=== PATIENT | female | born 1990 | race Caucasian/White ===

== ENCOUNTER → 2016-03-24 | Outpatient (REF) | payer OTHER ==
[~2016-03-24] MED LIST: ACET50TA PO; GUMMCHW PO; IBUP60TA PO; IBUP80TA PO; PERC5TAB6 PO; PRENTAB16 PO
== END ==
LOC: M LAB REF 17:20
PROVIDERS: ATTEND Obstetrics & Gynecology
DX: Z01.411 Encounter for gynecological examination (general) (routine) with abnormal findings (principal)

== ENCOUNTER 2016-03-25 18:48 | Emergency (ER) | payer OTHER ==
--- NOTE | 2016-03-25 20:33 | EDDOCDS ---
Nurse's Notes [facility] Name: Mally Gipson Age: 25 yrs Sex: Female : 1990 Arrival Date: 03/25/2016 Time: 18:48 Bed Triage 1 Private MD: [facility] - Adults Diagnosis: Acute upper respiratory infection, unspecified Presentation: 03/25 19:03 Presenting complaint: Patient states: Productive cough for 2 days. Risk factors: jo3 Stridor is not present. Drooling is not present. Shortness of breath is not present. Cellulitis is not present. Adult Sepsis Screening: The patient does not have new or worsening altered mentation. Patient's respiratory rate is less than 22. Systolic blood pressure is greater than 100. Patient has a qSOFA score of 0- Negative Sepsis Screen. Suicide/Homicide risk assessment- the patient denies having any suicidal and/or homicidal ideations and does not present with any other emotional, behavioral or mental health complaints. Status: Patient is not a technical service rep or dependent. Transition of care: patient was not received from another setting of care. 19:03 Acuity: OLAYINKA Level 4 jo3 19:03 Method Of Arrival: Walkin/Carried/Asstd jo3 Triage Assessment: 19:05 General: Appears in no apparent distress, Behavior is appropriate for age, cooperative. jo3 HIV screening NA for this visit Offered previously. Neurological: Level of Consciousness is awake, alert, Oriented to person, place, time. Respiratory: Airway is patent Respiratory effort is even, unlabored. 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 "depression medication" Unknown daily pt unsure of name of medication or dosage. 2. "anxiety pill" Unknown daily pt unsure of name of medication or dosage. 3. benadryl Unknown topical medication. pt unsure of dosage. - PMHx: Anxiety; Asthma; Depression; - PSHx: Exploratory lap; tubal ligation; - Social history: Smoking status: No barriers to communication noted, The patient speaks fluent Icelandic, Speaks appropriately for age, Smoking status: Patient uses tobacco products, light tobacco smoker. - Family history: SO recently diagnosed with bronchitis . - : The pt / caregiver states he / she is not on anticoagulants. Home medication list is obtained from the patient. - Exposure Risk Screening:: None identified. Screenin:45 Screening information is obtained from the patient. Fall risk: No risks identified. lf1 Assistance ADL's: requires no assistance with activities of daily living. Abuse/DV Screen: The patient / caregiver reports he/she is: not in a situation that causes fear, pain or injury. Nutritional screening: No deficits noted. Advance Directives: Currently, there is no health care proxy. There is no active DNR order. home support is adequate. Assessment: 19:45 Adult Sepsis Screening: The patient does not have new or worsening altered mentation. lf1 Patient's respiratory rate is less than 22. Systolic blood pressure is greater than 100. Patient has a qSOFA score of 0- Negative Sepsis Screen. General: Appears in no apparent distress, comfortable, Behavior is cooperative. Pain: Location: throat Pain currently is 0 out of 10 on a pain scale. Pain: Location: chest pain with cough. Neurological: Level of Consciousness is awake, alert, Oriented to person, place, time. EENT: nasal congestion and discharge. Respiratory: Respiratory effort is even, unlabored, Reports shortness of breath cough that is. GI: Denies nausea, vomiting. Derm: Skin is normal. 20:25 General: Appears in no apparent distress, comfortable, Behavior is cooperative. jf3 Neurological: Level of Consciousness is awake, alert, Oriented to person, place, time. Cardiovascular: Capillary refill < 3 seconds. Respiratory: Airway is patent Respiratory effort is even, unlabored, Respiratory pattern is regular, symmetrical. Derm: Skin is normal. 20:32 EENT: Throat. jf3 Vital Signs: 18:51 BP 127 / 85; Pulse 97; Resp 18 S; Temp 98.7(O); Pulse Ox 98% on R/A; Weight 67.13 kg gr2 (R); Height 5 ft. 3 in. (160.02 cm) (R); Pain 4/10; 18:51 Body Mass Index 26.22 (67.13 kg, 160.02 cm) gr2 Vitals: 18:51 Log In Time: March 25, 2016 at 18:51. gr2 ED Course: 18:51 Patient visited by Ariadna Kearney. gr2 18:51 [facility] is Private Physician. gr2 18:51 Patient moved to Waiting gr2 18:52 Patient visited by Ariadna Kearney. gr2 18:55 Patient moved to Pre RCE gr2 19:04 Triage Initiated jo3 19:05 Patient visited by Jessie Kuhn RN. jo3 19:41 Patient moved to Triage 1 lf1 19:47 Stu Freeman PA is PHCP. mo1 19:47 Lucas Olivas DO is Attending Physician. mo1 20:06 Patient visited by Stu Freeman PA. mo1 20:19 [facility] is Referral Physician. mo1 20:25 Khris Galeana,DAMI is Primary Nurse. jf3 20:25 The patient / caregiver is instructed regarding the plan of care and ED course. jf3 20:25 No IV's were initiated during this patient's visit. No procedures done that require jf3 assistance. 20:26 Patient visited by Khris Galeana RN. jf3 Order Results: There are currently no results for this order. Outcome: 20:19 Discharge ordered by Provider. mo1 20:32 Discharge Assessment: Patient awake, alert and oriented x 3. No cognitive and/or jf3 functional deficits noted. Patient verbalized understanding of disposition instructions. patient administered narcotics - no. The following High Risk Discharge criteria are identified: None. Discharged to home ambulatory. Condition: good. Discharge instructions given to patient, Instructed on discharge instructions, follow up and referral plans. medication usage, Demonstrated understanding of instructions, medications, Pt was receptive of discharge instructions/ teaching. No special radiology studies were completed. Property :Personal belongings accompany Pt. 20:32 Patient left the ED. jf3 Signatures: Jessie Kuhn,RN RN Farrah Sargent RN RN lf1 Ariadna Kearney gr2 Stu Freeman PA PA mo1 Khris Galeana RN RN jf3 MTDD
--- NOTE | 2016-03-25 20:33 | EDDOCDS ---
Physician Documentation [facility] Name: Mally Gipson Age: 25 yrs Sex: Female : 1990 Arrival Date: 03/25/2016 Time: 18:48 Bed Triage 1 Private MD: [facility] - Adults Disposition: 03/25/16 20:19 Discharged to Home/Self Care. Impression: Acute upper respiratory infection, unspecified. - Condition is Stable. - Discharge Instructions: Upper Respiratory Infection, Adult, Viral Infections. - Prescriptions for Fluticasone 50 mcg/actuation Nasal [place], Suspension - inhale 2 spray by INTRANASAL route once daily; 1 bottle. - Medication Reconciliation, Local Pharmacy Hours form. - Follow up: [facility] - Adults; When: Call to arrange an appointment; Reason: Recheck today's complaints, Continuance of care. - Problem is new. - Symptoms are unchanged. Historical: - Allergies: No known drug Allergies; - Home Meds: 1. "depression medication" Unknown daily pt unsure of name of medication or dosage. 2. "anxiety pill" Unknown daily pt unsure of name of medication or dosage. 3. benadryl Unknown topical medication. pt unsure of dosage. - PMHx: Anxiety; Asthma; Depression; - PSHx: Exploratory lap; tubal ligation; - Social history: Smoking status: No barriers to communication noted, The patient speaks fluent Tunisian, Speaks appropriately for age, Smoking status: Patient uses tobacco products, light tobacco smoker. - Family history: SO recently diagnosed with bronchitis . - : The pt / caregiver states he / she is not on anticoagulants. Home medication list is obtained from the patient. - Exposure Risk Screening:: None identified. 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 3 in. (160.02 cm) (R); Pain 4/10; 18:51 Body Mass Index 26.22 (67.13 kg, 160.02 cm) gr2 Signatures: Jessie Kuhn RN RN jo3 Farrah Wells RN RN lf1 Stu Freeman PA PA mo1 Khris Galeana,RN RN jf3 The chart was reviewed and I authenticate all verbal orders and agree with the evaluation and treatment provided.Corrections: (The following items were deleted from the chart) 19:55 19:47 Strep Screen, Nursing ordered. mo1 mo1 MTDD
--- NOTE | 2016-03-27 21:33 | EDDOCDS ---
Physician Documentation [facility] Name: Mally Gipson Age: 25 yrs Sex: Female : 1990 Arrival Date: 03/25/2016 Time: 18:48 Bed Triage 1 Private MD: [facility] - Adults Disposition: 03/25/16 20:19 Discharged to Home/Self Care. Impression: Acute upper respiratory infection, unspecified. - Condition is Stable. - Discharge Instructions: Upper Respiratory Infection, Adult, Viral Infections. - Prescriptions for Fluticasone 50 mcg/actuation Nasal [place], Suspension - inhale 2 spray by INTRANASAL route once daily; 1 bottle. - Medication Reconciliation, Local Pharmacy Hours form. - Follow up: [facility] - Adults; When: Call to arrange an appointment; Reason: Recheck today's complaints, Continuance of care. - Problem is new. - Symptoms are unchanged. Historical: - Allergies: No known drug Allergies; - Home Meds: 1. "depression medication" Unknown daily pt unsure of name of medication or dosage. 2. "anxiety pill" Unknown daily pt unsure of name of medication or dosage. 3. benadryl Unknown topical medication. pt unsure of dosage. - PMHx: Anxiety; Asthma; Depression; - PSHx: Exploratory lap; tubal ligation; - Social history: Smoking status: No barriers to communication noted, The patient speaks fluent [place]araguan, Speaks appropriately for age, Smoking status: Patient uses tobacco products, light tobacco smoker. - Family history: SO recently diagnosed with bronchitis . - : The pt / caregiver states he / she is not on anticoagulants. Home medication list is obtained from the patient. - Exposure Risk Screening:: None identified. 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 3 in. (160.02 cm) (R); Pain 4/10; 18:51 Body Mass Index 26.22 (67.13 kg, 160.02 cm) gr2 MDM: 20:46 [facility] Payment Agreement was scanned into [employer] and attached to record. gjb 20:46 Financial registration complete. [facility] 03/26 12:14 T-Sheet-- Draft Copy was scanned into [employer] and attached to record. Signatures: Eve Munoz, Reg Reg Jessie Dailey,RN RN jo3 Farrah WellsRN RN lf1 Stu Freeman PA PA mo1 Khris Galeana,DAMI RN jf3 Maria E Billings [facility] The chart was reviewed and I authenticate all verbal orders and agree with the evaluation and treatment provided.Corrections: (The following items were deleted from the chart) 03/25 19:55 19:47 Strep Screen, Nursing ordered. mo1 mo1 Attachments: 20:46 [facility] Payment Agreement [facility] 03/26 12:14 T-Sheet-- Draft Copy gb Chart Complete MTDD
--- NOTE | 2016-03-27 21:33 | EDDOCDS ---
Nurse's Notes [facility] Name: Mally Gipson Age: 25 yrs Sex: Female : 1990 Arrival Date: 03/25/2016 Time: 18:48 Bed Triage 1 Private MD: [facility] - Adults Diagnosis: Acute upper respiratory infection, unspecified Presentation: 03/25 19:03 Presenting complaint: Patient states: Productive cough for 2 days. Risk factors: jo3 Stridor is not present. Drooling is not present. Shortness of breath is not present. Cellulitis is not present. Adult Sepsis Screening: The patient does not have new or worsening altered mentation. Patient's respiratory rate is less than 22. Systolic blood pressure is greater than 100. Patient has a qSOFA score of 0- Negative Sepsis Screen. Suicide/Homicide risk assessment- the patient denies having any suicidal and/or homicidal ideations and does not present with any other emotional, behavioral or mental health complaints. Status: Patient is not a service crew leader or dependent. Transition of care: patient was not received from another setting of care. 19:03 Acuity: OLAYINKA Level 4 jo3 19:03 Method Of Arrival: Walkin/Carried/Asstd jo3 Triage Assessment: 19:05 General: Appears in no apparent distress, Behavior is appropriate for age, cooperative. jo3 HIV screening NA for this visit Offered previously. Neurological: Level of Consciousness is awake, alert, Oriented to person, place, time. Respiratory: Airway is patent Respiratory effort is even, unlabored. 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 "depression medication" Unknown daily pt unsure of name of medication or dosage. 2. "anxiety pill" Unknown daily pt unsure of name of medication or dosage. 3. benadryl Unknown topical medication. pt unsure of dosage. - PMHx: Anxiety; Asthma; Depression; - PSHx: Exploratory lap; tubal ligation; - Social history: Smoking status: No barriers to communication noted, The patient speaks fluent Greek, Speaks appropriately for age, Smoking status: Patient uses tobacco products, light tobacco smoker. - Family history: SO recently diagnosed with bronchitis . - : The pt / caregiver states he / she is not on anticoagulants. Home medication list is obtained from the patient. - Exposure Risk Screening:: None identified. Screenin:45 Screening information is obtained from the patient. Fall risk: No risks identified. lf1 Assistance ADL's: requires no assistance with activities of daily living. Abuse/DV Screen: The patient / caregiver reports he/she is: not in a situation that causes fear, pain or injury. Nutritional screening: No deficits noted. Advance Directives: Currently, there is no health care proxy. There is no active DNR order. home support is adequate. Assessment: 19:45 Adult Sepsis Screening: The patient does not have new or worsening altered mentation. lf1 Patient's respiratory rate is less than 22. Systolic blood pressure is greater than 100. Patient has a qSOFA score of 0- Negative Sepsis Screen. General: Appears in no apparent distress, comfortable, Behavior is cooperative. Pain: Location: throat Pain currently is 0 out of 10 on a pain scale. Pain: Location: chest pain with cough. Neurological: Level of Consciousness is awake, alert, Oriented to person, place, time. EENT: nasal congestion and discharge. Respiratory: Respiratory effort is even, unlabored, Reports shortness of breath cough that is. GI: Denies nausea, vomiting. Derm: Skin is normal. 20:25 General: Appears in no apparent distress, comfortable, Behavior is cooperative. jf3 Neurological: Level of Consciousness is awake, alert, Oriented to person, place, time. Cardiovascular: Capillary refill < 3 seconds. Respiratory: Airway is patent Respiratory effort is even, unlabored, Respiratory pattern is regular, symmetrical. Derm: Skin is normal. 20:32 EENT: Throat. jf3 Vital Signs: 18:51 BP 127 / 85; Pulse 97; Resp 18 S; Temp 98.7(O); Pulse Ox 98% on R/A; Weight 67.13 kg gr2 (R); Height 5 ft. 3 in. (160.02 cm) (R); Pain 4/10; 18:51 Body Mass Index 26.22 (67.13 kg, 160.02 cm) gr2 Vitals: 18:51 Log In Time: March 25, 2016 at 18:51. gr2 ED Course: 18:51 Patient visited by Ariadna Kearney. gr2 18:51 [facility] - [facility] is Private Physician. gr2 18:51 Patient moved to Waiting gr2 18:52 Patient visited by Ariadna Kearney. gr2 18:55 Patient moved to Pre RCE gr2 19:04 Triage Initiated jo3 19:05 Patient visited by Jessie Kuhn RN. jo3 19:41 Patient moved to Triage 1 lf1 19:47 Stu Freeman PA is PHCP. mo1 19:47 Lucas Olivas DO is Attending Physician. mo1 20:06 Patient visited by Stu Freeman PA. mo1 20:19 [facility] is Referral Physician. mo1 20:25 Khris Galeana,DAMI is Primary Nurse. jf3 20:25 The patient / caregiver is instructed regarding the plan of care and ED course. jf3 20:25 No IV's were initiated during this patient's visit. No procedures done that require jf3 assistance. 20:26 Patient visited by Khris Galeana RN. jf3 20:46 [facility] Payment Agreement was scanned into [employer] and attached to record. gjb 03/26 12:14 T-Sheet-- Draft Copy was scanned into [employer] and attached to record. gb Order Results: There are currently no results for this order. Outcome: 03/25 20:19 Discharge ordered by Provider. mo1 20:32 Discharge Assessment: Patient awake, alert and oriented x 3. No cognitive and/or jf3 functional deficits noted. Patient verbalized understanding of disposition instructions. patient administered narcotics - no. The following High Risk Discharge criteria are identified: None. Discharged to home ambulatory. Condition: good. Discharge instructions given to patient, Instructed on discharge instructions, follow up and referral plans. medication usage, Demonstrated understanding of instructions, medications, Pt was receptive of discharge instructions/ teaching. No special radiology studies were completed. Property :Personal belongings accompany Pt. 20:32 Patient left the ED. jf3 Signatures: Eve Munoz, Gagan Reg Jessie Dailey,RN RN Farrah Sargent RN RN lf1 Ariadna Kearney gr2 Stu Freeman PA PA mo1 Khris Galeana,DAMI RN shravan3 Maria E Billings [facility] Chart Complete MTDD
--- NOTE | 2016-03-27 21:33 | EDDOCDS ---
Physician Documentation [facility] Name: Mally Gipson Age: 25 yrs Sex: Female : 1990 Arrival Date: 03/25/2016 Time: 18:48 Bed Triage 1 Private MD: [facility] - Adults Disposition: 03/25/16 20:19 Discharged to Home/Self Care. Impression: Acute upper respiratory infection, unspecified. - Condition is Stable. - Discharge Instructions: Upper Respiratory Infection, Adult, Viral Infections. - Prescriptions for Fluticasone 50 mcg/actuation Nasal [place], Suspension - inhale 2 spray by INTRANASAL route once daily; 1 bottle. - Medication Reconciliation, Local Pharmacy Hours form. - Follow up: [facility] - Adults; When: Call to arrange an appointment; Reason: Recheck today's complaints, Continuance of care. - Problem is new. - Symptoms are unchanged. Historical: - Allergies: No known drug Allergies; - Home Meds: 1. "depression medication" Unknown daily pt unsure of name of medication or dosage. 2. "anxiety pill" Unknown daily pt unsure of name of medication or dosage. 3. benadryl Unknown topical medication. pt unsure of dosage. - PMHx: Anxiety; Asthma; Depression; - PSHx: Exploratory lap; tubal ligation; - Social history: Smoking status: No barriers to communication noted, The patient speaks fluent Citizen Of [place], Speaks appropriately for age, Smoking status: Patient uses tobacco products, light tobacco smoker. - Family history: SO recently diagnosed with bronchitis . - : The pt / caregiver states he / she is not on anticoagulants. Home medication list is obtained from the patient. - Exposure Risk Screening:: None identified. 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 3 in. (160.02 cm) (R); Pain 4/10; 18:51 Body Mass Index 26.22 (67.13 kg, 160.02 cm) gr2 MDM: 20:46 [facility] Payment Agreement was scanned into [employer] and attached to record. gjb 20:46 Financial registration complete. [facility] 03/26 12:14 T-Sheet-- Draft Copy was scanned into [employer] and attached to record. Signatures: Eve Munoz, Reg Reg Jessie Dailey,RN RN jo3 Farrah WellsRN RN lf1 Stu Freeman PA PA mo1 Khris Galeana,DAMI RN jf3 Maria E Billings [facility] The chart was reviewed and I authenticate all verbal orders and agree with the evaluation and treatment provided.Corrections: (The following items were deleted from the chart) 03/25 19:55 19:47 Strep Screen, Nursing ordered. mo1 mo1 Attachments: 20:46 [facility] Payment Agreement [facility] 03/26 12:14 T-Sheet-- Draft Copy gb Chart Complete MTDD
== END 2016-03-25 20:32 | disposition home or self-care (01) ==
LOC: M ED 18:48
DX: J06.9 Acute upper respiratory infection, unspecified (principal); F41.9 Anxiety disorder, unspecified; J45.909 Unspecified asthma, uncomplicated; F32.9 Major depressive disorder, single episode, unspecified; F17.210 Nicotine dependence, cigarettes, uncomplicated; Z79.899 Other long term (current) drug therapy

== ENCOUNTER 2016-04-07 20:56 | Emergency (ER) | payer OTHER ==
--- NOTE | 2016-04-07 22:17 | EDDOCDS ---
Physician Documentation [facility] Name: Mally Gipson Age: 25 yrs Sex: Female : 1990 Arrival Date: 04/07/2016 Time: 20:56 Bed TR7 Private MD: [facility] - Adults Disposition: 04/07/16 22:08 Discharged to Home/Self Care. Impression: Rash and other nonspecific skin eruption. - Condition is Stable. - Discharge Instructions: Rash, [id number]. - Medication Reconciliation, Local Pharmacy Hours form. - Follow up: [facility] - Adults; When: Call to arrange an appointment; Reason: Further diagnostic work-up, Recheck today's complaints, Continuance of care. - Problem is new. - Symptoms are unchanged. Historical: - Allergies: no known allergies; - Home Meds: 1. "anxiety pill" Unknown daily pt unsure of name of medication or dosage. 2. "depression medication" Unknown daily pt unsure of name of medication or dosage. 3. benadryl Unknown topical medication. pt unsure of dosage. (Last dose: 04/07/2016 20:30) - PMHx: Anxiety; Asthma; Depression; - PSHx: Exploratory lap; - Social history: Smoking status: Patient uses tobacco products, heavy tobacco smoker. No barriers to communication noted, The patient speaks fluent [place] Citizen. - Family history: Not pertinent. - : The pt / caregiver states he / she is not on anticoagulants. Home medication list is obtained from. - Exposure Risk Screening:: None identified. 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 3 in. (160.02 cm) (R); Pain 2/10; 20:57 Body Mass Index 25.33 (64.86 kg, 160.02 cm) gr2 Signatures: Mikal Reid RN RN cz [place], Brandon, PA PA btw Stu Quintanilla RN RN mb9 MTDD
--- NOTE | 2016-04-07 22:17 | EDDOCDS ---
Nurse's Notes [facility] Name: Mally Gipson Age: 25 yrs Sex: Female : 1990 Arrival Date: 04/07/2016 Time: 20:56 Bed TR7 Private MD: [facility] - Adults Diagnosis: Rash and other nonspecific skin eruption Presentation: 04/07 21:07 Presenting complaint: Patient states: "I'm breaking out in my stomach from around and mb9 up and don't ask me what its called because I don't know. Its a high blood pressure med they gave me for sleep". Adult Sepsis Screening: The patient does not have new or worsening altered mentation. Patient's respiratory rate is less than 22. Systolic blood pressure is greater than 100. Patient has a qSOFA score of 0- Negative Sepsis Screen. Suicide/Homicide risk assessment- the patient denies having any suicidal and/or homicidal ideations and does not present with any other emotional, behavioral or mental health complaints. Status: Patient is not a off premise service representative or dependent. Transition of care: patient was not received from another setting of care. 21:07 Acuity: OLAYINKA Level 4 mb9 21:07 Method Of Arrival: Walkin/Carried/Asstd mb9 Triage Assessment: 21:09 General: Appears in no apparent distress. Pain: Denies pain. HIV screening NA for this mb9 visit Offered previously. Respiratory: Airway is patent Respiratory effort is even, unlabored. Derm: Reports "I think I have hives on my stomach". 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 "anxiety pill" Unknown daily pt unsure of name of medication or dosage. 2. "depression medication" Unknown daily pt unsure of name of medication or dosage. 3. benadryl Unknown topical medication. pt unsure of dosage. (Last dose: 04/07/2016 20:30) - PMHx: Anxiety; Asthma; Depression; - PSHx: Exploratory lap; - Social history: Smoking status: Patient uses tobacco products, heavy tobacco smoker. No barriers to communication noted, The patient speaks fluent [place]. - Family history: Not pertinent. - : The pt / caregiver states he / she is not on anticoagulants. Home medication list is obtained from. - Exposure Risk Screening:: None identified. Screenin:14 Screening information is obtained from the patient. Fall risk: No risks identified. cz Assistance ADL's: requires no assistance with activities of daily living. Abuse/DV Screen: The patient / caregiver reports he/she is: not in a situation that causes fear, pain or injury. Nutritional screening: No deficits noted. Advance Directives: Currently, there is no health care proxy. There is no active DNR order. There is no living will. There is no Power of Television Anchor. Advance directive information has not previously been placed in an [facility] medical record. Further advance directive information is declined. home support is adequate. Assessment: 22:14 Reassessment: Patient appears in no apparent distress at this time. cz Vital Signs: 20:57 BP 129 / 70; Pulse 95; Resp 18 S; Temp 98.7(O); Pulse Ox 97% on R/A; Weight 64.86 kg gr2 (R); Height 5 ft. 3 in. (160.02 cm) (R); Pain 2/10; 20:57 Body Mass Index 25.33 (64.86 kg, 160.02 cm) gr2 Vitals: 20:57 Log In Time: April 07, 2016 at 20:57. gr2 ED Course: 20:57 Patient visited by Ariadna Kearney. gr2 20:57 [facility] is Private Physician. gr2 20:57 Patient moved to Waiting gr2 20:58 Patient visited by Ariadna Kearney. gr2 20:58 Patient moved to Pre RCE gr2 21:08 Triage Initiated mb9 21:10 Patient moved to MTA Wait mb9 21:53 Georgie Richter,RN is Primary Nurse. cz 21:53 Patient moved to Triage 2 cz 21:54 Jewel Finch PA is PHCP. btw 21:54 Bradford Urbina DO is Attending Physician. btw 21:54 Patient visited by Jewel Finch PA. btw 22:07 [facility] is Referral Physician. btw 22:13 Patient moved to TR ar3 22:14 The patient / caregiver is instructed regarding the plan of care and ED course. cz 22:14 No IV's were initiated during this patient's visit. No procedures done that require cz assistance. Order Results: There are currently no results for this order. Outcome: 22:08 Discharge ordered by Provider. btw 22:14 Discharge Assessment: Patient awake, alert and oriented x 3. No cognitive and/or cz functional deficits noted. Patient verbalized understanding of disposition instructions. patient administered narcotics - no. The following High Risk Discharge criteria are identified: None. Discharged to home ambulatory. Condition: stable. Discharge instructions given to patient, Instructed on discharge instructions, follow up and referral plans. Demonstrated understanding of instructions, Pt was receptive of discharge instructions/ teaching. No special radiology studies were completed. Property :Personal belongings accompany Pt. 22:16 Patient left the ED. cz Signatures: Mikal Reid, RN RN Angie Finch, KWAN BLANKET BINDER ar3 Jewel Finch PA PA btw Ariadna Kearney gr2 Stu Quintanilla,RN RN mb9 MTDDelia
--- NOTE | 2016-04-09 23:17 | EDDOCDS ---
Physician Documentation [facility] Name: Mally Gipson Age: 25 yrs Sex: Female : 1990 Arrival Date: 04/07/2016 Time: 20:56 Bed TR7 Private MD: [facility] - Adults Disposition: 04/07/16 22:08 Discharged to Home/Self Care. Impression: Rash and other nonspecific skin eruption. - Condition is Stable. - Discharge Instructions: Rash, [id number]. - Medication Reconciliation, Local Pharmacy Hours form. - Follow up: [facility] - Adults; When: Call to arrange an appointment; Reason: Further diagnostic work-up, Recheck today's complaints, Continuance of care. - Problem is new. - Symptoms are unchanged. Historical: - Allergies: no known allergies; - Home Meds: 1. "anxiety pill" Unknown daily pt unsure of name of medication or dosage. 2. "depression medication" Unknown daily pt unsure of name of medication or dosage. 3. benadryl Unknown topical medication. pt unsure of dosage. (Last dose: 04/07/2016 20:30) - PMHx: Anxiety; Asthma; Depression; - PSHx: Exploratory lap; - Social history: Smoking status: Patient uses tobacco products, heavy tobacco smoker. No barriers to communication noted, The patient speaks fluent [place]. - Family history: Not pertinent. - : The pt / caregiver states he / she is not on anticoagulants. Home medication list is obtained from. - Exposure Risk Screening:: None identified. 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 3 in. (160.02 cm) (R); Pain 2/10; 20:57 Body Mass Index 25.33 (64.86 kg, 160.02 cm) gr2 MDM: 22:22 Financial registration complete. [facility] 22:23 [facility] Payment Agreement was scanned into [employer] and attached to record. ks04/08 12:28 T-Sheet-- Draft Copy was scanned into [employer] and attached to record. gb Signatures: Mikal Reid RN RN cz Eve Munoz, Reg Reg gb Jewel Finch PA PA btw Stu Quintanilla RN RN mb9 Keren Haywood, Reg Reg ks16 The chart was reviewed and I authenticate all verbal orders and agree with the evaluation and treatment provided.Attachments: 04/07 22:23 [facility] [place] Agreement [email or web address] 04/08 12:28 T-Sheet-- Draft Copy gb Chart Complete MTDD
--- NOTE | 2016-04-09 23:17 | EDDOCDS ---
Nurse's Notes [facility] Name: Mally Gipson Age: 25 yrs Sex: Female : 1990 Arrival Date: 04/07/2016 Time: 20:56 Bed TR7 Private MD: [facility] - Adults Diagnosis: Rash and other nonspecific skin eruption Presentation: 04/07 21:07 Presenting complaint: Patient states: "I'm breaking out in my stomach from around and mb9 up and don't ask me what its called because I don't know. Its a high blood pressure med they gave me for sleep". Adult Sepsis Screening: The patient does not have new or worsening altered mentation. Patient's respiratory rate is less than 22. Systolic blood pressure is greater than 100. Patient has a qSOFA score of 0- Negative Sepsis Screen. Suicide/Homicide risk assessment- the patient denies having any suicidal and/or homicidal ideations and does not present with any other emotional, behavioral or mental health complaints. Status: Patient is not a reactor service operator or dependent. Transition of care: patient was not received from another setting of care. 21:07 Acuity: OLAYINKA Level 4 mb9 21:07 Method Of Arrival: Walkin/Carried/Asstd mb9 Triage Assessment: 21:09 General: Appears in no apparent distress. Pain: Denies pain. HIV screening NA for this mb9 visit Offered previously. Respiratory: Airway is patent Respiratory effort is even, unlabored. Derm: Reports "I think I have hives on my stomach". 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 "anxiety pill" Unknown daily pt unsure of name of medication or dosage. 2. "depression medication" Unknown daily pt unsure of name of medication or dosage. 3. benadryl Unknown topical medication. pt unsure of dosage. (Last dose: 04/07/2016 20:30) - PMHx: Anxiety; Asthma; Depression; - PSHx: Exploratory lap; - Social history: Smoking status: Patient uses tobacco products, heavy tobacco smoker. No barriers to communication noted, The patient speaks fluent Kinyarwanda. - Family history: Not pertinent. - : The pt / caregiver states he / she is not on anticoagulants. Home medication list is obtained from. - Exposure Risk Screening:: None identified. Screenin:14 Screening information is obtained from the patient. Fall risk: No risks identified. cz Assistance ADL's: requires no assistance with activities of daily living. Abuse/DV Screen: The patient / caregiver reports he/she is: not in a situation that causes fear, pain or injury. Nutritional screening: No deficits noted. Advance Directives: Currently, there is no health care proxy. There is no active DNR order. There is no living will. There is no Power of Senior Project Controls Specialist. Advance directive information has not previously been placed in an [facility] medical record. Further advance directive information is declined. home support is adequate. Assessment: 22:14 Reassessment: Patient appears in no apparent distress at this time. cz Vital Signs: 20:57 BP 129 / 70; Pulse 95; Resp 18 S; Temp 98.7(O); Pulse Ox 97% on R/A; Weight 64.86 kg gr2 (R); Height 5 ft. 3 in. (160.02 cm) (R); Pain 2/10; 20:57 Body Mass Index 25.33 (64.86 kg, 160.02 cm) gr2 Vitals: 20:57 Log In Time: April 07, 2016 at 20:57. gr2 ED Course: 20:57 Patient visited by Ariadna Kearney. gr2 20:57 [facility] is Private Physician. gr2 20:57 Patient moved to Waiting gr2 20:58 Patient visited by Ariadna Kearney. gr2 20:58 Patient moved to Pre RCE gr2 21:08 Triage Initiated mb9 21:10 Patient moved to MTA Wait mb9 21:53 Georgie Richter,RN is Primary Nurse. cz 21:53 Patient moved to Triage 2 cz 21:54 Jewel Finch PA is PHCP. btw 21:54 Bradford Urbina DO is Attending Physician. btw 21:54 Patient visited by Jewel Finch PA. btw 22:07 [facility] is Referral Physician. btw 22:13 Patient moved to TR ar3 22:14 The patient / caregiver is instructed regarding the plan of care and ED course. cz 22:14 No IV's were initiated during this patient's visit. No procedures done that require cz assistance. 22:23 [facility] Payment Agreement was scanned into [employer] and attached to record. [email or web address] 04/08 12:28 T-Sheet-- Draft Copy was scanned into [employer] and attached to record. gb Order Results: There are currently no results for this order. Outcome: 04/07 22:08 Discharge ordered by Provider. btw 22:14 Discharge Assessment: Patient awake, alert and oriented x 3. No cognitive and/or cz functional deficits noted. Patient verbalized understanding of disposition instructions. patient administered narcotics - no. The following High Risk Discharge criteria are identified: None. Discharged to home ambulatory. Condition: stable. Discharge instructions given to patient, Instructed on discharge instructions, follow up and referral plans. Demonstrated understanding of instructions, Pt was receptive of discharge instructions/ teaching. No special radiology studies were completed. Property :Personal belongings accompany Pt. 22:16 Patient left the ED. cz Signatures: Mikal Reid, RN RN cz Eve Munoz, Reg Reg gb Angie Maza, FRUIT PACKER FRUIT PACKER ar3 Jewel Finch PA PA btw Ariadna Kearney gr2 Stu Quintanilla RN RN mb9 Keren Haywood, Reg Reg ks16 Chart Complete [facility]
--- NOTE | 2016-04-09 23:17 | EDDOCDS ---
Physician Documentation [facility] Name: Mally Gipson Age: 25 yrs Sex: Female : 1990 Arrival Date: 04/07/2016 Time: 20:56 Bed TR7 Private MD: [facility] - Adults Disposition: 04/07/16 22:08 Discharged to Home/Self Care. Impression: Rash and other nonspecific skin eruption. - Condition is Stable. - Discharge Instructions: Rash, Ndpn-ic-Bstz. - Medication Reconciliation, Local Pharmacy Hours form. - Follow up: [facility] - Adults; When: Call to arrange an appointment; Reason: Further diagnostic work-up, Recheck today's complaints, Continuance of care. - Problem is new. - Symptoms are unchanged. Historical: - Allergies: no known allergies; - Home Meds: 1. "anxiety pill" Unknown daily pt unsure of name of medication or dosage. 2. "depression medication" Unknown daily pt unsure of name of medication or dosage. 3. benadryl Unknown topical medication. pt unsure of dosage. (Last dose: 04/07/2016 20:30) - PMHx: Anxiety; Asthma; Depression; - PSHx: Exploratory lap; - Social history: Smoking status: Patient uses tobacco products, heavy tobacco smoker. No barriers to communication noted, The patient speaks fluent South Korean. - Family history: Not pertinent. - : The pt / caregiver states he / she is not on anticoagulants. Home medication list is obtained from. - Exposure Risk Screening:: None identified. 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 3 in. (160.02 cm) (R); Pain 2/10; 20:57 Body Mass Index 25.33 (64.86 kg, 160.02 cm) gr2 MDM: 22:22 Financial registration complete. [facility] 22:23 [facility] Payment Agreement was scanned into [employer] and attached to record. ks04/08 12:28 T-Sheet-- Draft Copy was scanned into [employer] and attached to record. gb Signatures: Mikal Reid RN RN cz Eve Munoz, Reg Reg gb Jewel Finch PA PA btw Stu Quintanilla RN RN mb9 Keren Haywood, Reg Reg ks16 The chart was reviewed and I authenticate all verbal orders and agree with the evaluation and treatment provided.Attachments: 04/07 22:23 [facility] Payment Agreement [email or web address] 04/08 12:28 T-Sheet-- Draft Copy gb Chart Complete MTDD
== END 2016-04-07 22:16 | disposition home or self-care (01) ==
LOC: M ED 20:56
DX: R21 Rash and other nonspecific skin eruption (principal); J45.909 Unspecified asthma, uncomplicated; F32.9 Major depressive disorder, single episode, unspecified; F41.9 Anxiety disorder, unspecified; F17.210 Nicotine dependence, cigarettes, uncomplicated; Z79.899 Other long term (current) drug therapy

== ENCOUNTER 2016-04-19 14:26 | Emergency (ER) | payer OTHER ==
[2016-04-19] MEDS ORDERED: ONDANSETRON 4 MG ORAL DISINTEGRATING TAB (S0181) As Ordered ONE (14:48)
--- NOTE | 2016-04-19 14:51 | EDDOCDS ---
Nurse's Notes [facility] Name: Mally Gipson Age: 25 yrs Sex: Female : 1990 Arrival Date: 04/19/2016 Time: 14:26 Bed Triage 3 Private MD: [facility] - Adults Diagnosis: Nausea and vomiting Presentation: 04/19 14:29 Presenting complaint: Patient states: N/V began at 0600 this am. Adult Sepsis mlb1 Screening: The patient does not have new or worsening altered mentation. Patient's respiratory rate is less than 22. Systolic blood pressure is greater than 100. Patient has a qSOFA score of 0- Negative Sepsis Screen. Suicide/Homicide risk assessment- the patient denies having any suicidal and/or homicidal ideations and does not present with any other emotional, behavioral or mental health complaints. Status: Patient is not a director of special services or dependent. Transition of care: patient was not received from another setting of care. 14:29 Acuity: OLAYINKA Level 4 mlb1 14:29 Method Of Arrival: Walkin/Carried/Asstd mlb1 Triage Assessment: 14:30 General: Appears in no apparent distress, Behavior is appropriate for age, cooperative. mlb1 Pain: Location: abdomen Pain currently is 5 out of 10 on a pain scale. Quality of pain is described as crampy. HIV screening NA for this visit Offered previously. GI: Reports nausea, vomiting. 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 none - PMHx: Anxiety; Asthma; Depression; - PSHx: Exploratory lap; - Social history: Smoking status: Patient uses tobacco products, light tobacco smoker. No barriers to communication noted, The patient speaks fluent Pashto, Speaks appropriately for age. - Family history: Not pertinent. - : The pt / caregiver states he / she is not on anticoagulants. Home medication list is obtained from the patient. - Exposure Risk Screening:: None identified. Screenin:50 Screening information is obtained from the patient. Fall risk: No risks identified. mlb1 Assistance ADL's: requires no assistance with activities of daily living. Abuse/DV Screen: The patient / caregiver reports he/she is: not in a situation that causes fear, pain or injury. Nutritional screening: No deficits noted. Advance Directives: Currently, there is no health care proxy. home support is adequate. Assessment: 14:49 General: Appears in no apparent distress, Behavior is appropriate for age, cooperative. mlb1 Pain: Location: abdomen Pain currently is 5 out of 10 on a pain scale. GI: Abdomen is non- distended Bowel sounds present X 4 quads. Abd is soft and non tender X 4 quads. GI: Reports nausea, vomiting. Derm: No deficits noted. Vital Signs: 14:27 BP 126 / 84; Pulse 126; Resp 18; Temp 98.0(O); Pulse Ox 100% ; Weight 63.5 kg (R); lr2 Height 5 ft. 3 in. (160.02 cm) (R); Pain 7/10; 14:27 Body Mass Index 24.80 (63.50 kg, 160.02 cm) lr2 Vitals: 14:27 Log In Time: April 19, 2016 at 14:26. lr2 ED Course: 14:27 Patient visited by Ritu Mcfarland. lr2 14:27 Patient moved to Waiting lr2 14:28 [facility] is Private Physician. lr2 14:29 Patient visited by Stu Butler RN. mlb1 14:29 Patient moved to Pre RCE lr2 14:29 Patient moved to Triage 3 ms18 14:30 Triage Initiated mlb1 14:31 Bull Burt PA-C is [facility]. cc10 14:31 Jackson Zavala MD is Attending Physician. cc10 14:31 Patient visited by Stu Butler RN. mlb1 14:36 Patient visited by Bull Burt PA-C. cc10 14:36 Patient visited by Bull Burt PA-C. cc10 14:43 [facility] is Referral Physician. cc10 14:50 No IV's were initiated during this patient's visit. No procedures done that require mlb1 assistance. 14:51 The patient / caregiver is instructed regarding the plan of care and ED course. mlb1 Order Results: There are currently no results for this order. Outcome: 14:43 Discharge ordered by Provider. cc10 14:50 Discharge Assessment: Patient awake, alert and oriented x 3. No cognitive and/or mlb1 functional deficits noted. Patient verbalized understanding of disposition instructions. patient administered narcotics - no. The following High Risk Discharge criteria are identified: None. Discharged to home ambulatory. Condition: good. Discharge instructions given to patient, Instructed on discharge instructions, follow up and referral plans. medication usage, Demonstrated understanding of instructions, medications, Pt was receptive of discharge instructions/ teaching. No special radiology studies were completed. Property sent home with patient. 14:51 Patient left the ED. mlb1 Signatures: Stu Butler RN RN mlb1 Bull Burt PA-C PA-C cc10 Sherine Berger RN RN ms18 Ritu Mcfarland lr2 MTDD
--- NOTE | 2016-04-19 14:51 | EDDOCDS ---
Physician Documentation [facility] Name: Mally Gipson Age: 25 yrs Sex: Female : 1990 Arrival Date: 04/19/2016 Time: 14:26 Bed Triage 3 Private MD: [facility] - Adults Disposition: 04/19/16 14:43 Discharged to Home/Self Care. Impression: Nausea and vomiting. - Condition is Stable. - Discharge Instructions: Viral Gastroenteritis. - Prescriptions for ZOFRAN ODT 4 mg - dissolve 1 tablet by ORAL route 4 times per day As needed do not chew, do not swallow whole; 10 tablet. - Medication Reconciliation form. - Follow up: [facility] - Adults; When: Call to arrange an appointment; Reason: Wound/Symptom Recheck, Recheck today's complaints, Worsening of conditions, Continuance of care. - Problem is new. - Symptoms are unchanged. Historical: - Allergies: no known allergies; - Home Meds: 1. none - PMHx: Anxiety; Asthma; Depression; - PSHx: Exploratory lap; - Social history: Smoking status: Patient uses tobacco products, light tobacco smoker. No barriers to communication noted, The patient speaks fluent Kiswahili, Speaks appropriately for age. - Family history: Not pertinent. - : The pt / caregiver states he / she is not on anticoagulants. Home medication list is obtained from the patient. - Exposure Risk Screening:: None identified. DIRECTOR OF SLEEP: 04/19 14:31 LMP 04/17/2016 mlb1 Vital Signs: 14:27 BP 126 / 84; Pulse 126; Resp 18; Temp 98.0(O); Pulse Ox 100% ; Weight 63.5 kg / 139.99 lr2 lbs (R); Height 5 ft. 3 in. (160.02 cm) (R); Pain 7/10; 14:27 Body Mass Index 24.80 (63.50 kg, 160.02 cm) lr2 MDM: 14:42 Ondansetron ODT Oral Disintegrating Tablet 4 mg PO once ordered. cc10 Signatures: Stu Butler RN RN mlb1 Bull Burt PA-C PAZamzam cc10 MTDD
--- NOTE | 2016-04-21 15:52 | EDDOCDS ---
Physician Documentation [facility] Name: Mally Gipson Age: 25 yrs Sex: Female : 1990 Arrival Date: 04/19/2016 Time: 14:26 Bed Triage 3 Private MD: [facility] - Adults Disposition: 04/19/16 14:43 Discharged to Home/Self Care. Impression: Nausea and vomiting. - Condition is Stable. - Discharge Instructions: Viral Gastroenteritis. - Prescriptions for ZOFRAN ODT 4 mg - dissolve 1 tablet by ORAL route 4 times per day As needed do not chew, do not swallow whole; 10 tablet. - Medication Reconciliation form. - Follow up: [facility] - Adults; When: Call to arrange an appointment; Reason: Wound/Symptom Recheck, Recheck today's complaints, Worsening of conditions, Continuance of care. - Problem is new. - Symptoms are unchanged. Historical: - Allergies: no known allergies; - Home Meds: 1. none - PMHx: Anxiety; Asthma; Depression; - PSHx: Exploratory lap; - Social history: Smoking status: Patient uses tobacco products, light tobacco smoker. No barriers to communication noted, The patient speaks fluent Slovenian, Speaks appropriately for age. - Family history: Not pertinent. - : The pt / caregiver states he / she is not on anticoagulants. Home medication list is obtained from the patient. - Exposure Risk Screening:: None identified. JOB CAPTAIN: 04/19 14:31 LMP 04/17/2016 mlb1 Vital Signs: 14:27 BP 126 / 84; Pulse 126; Resp 18; Temp 98.0(O); Pulse Ox 100% ; Weight 63.5 kg / 139.99 lr2 lbs (R); Height 5 ft. 3 in. (160.02 cm) (R); Pain 7/10; 14:27 Body Mass Index 24.80 (63.50 kg, 160.02 cm) lr2 MDM: 14:42 Ondansetron ODT Oral Disintegrating Tablet 4 mg PO once ordered. cc10 14:52 [facility] Payment Agreement was scanned into [employer] and attached to record. jp5 14:52 Financial registration complete. jp5 04/20 10:16 T-Sheet-- Draft Copy was scanned into [employer] and attached to record. gb Signatures: Eve Munoz, Reg Reg gb Stu Butler, RN RN mlb1 Bull Burt PAHarisC PAHarisC cc10 Rhett Barrett jp5 The chart was reviewed and I authenticate all verbal orders and agree with the evaluation and treatment provided.Attachments: 04/19 14:52 [facility] Payment Agreement jp5 04/20 10:16 T-Sheet-- Draft Copy gb Chart Complete MTDD
--- NOTE | 2016-04-21 15:52 | EDDOCDS ---
Physician Documentation [facility] Name: Mally Gipson Age: 25 yrs Sex: Female : 1990 Arrival Date: 04/19/2016 Time: 14:26 Bed Triage 3 Private MD: [facility] - Adults Disposition: 04/19/16 14:43 Discharged to Home/Self Care. Impression: Nausea and vomiting. - Condition is Stable. - Discharge Instructions: Viral Gastroenteritis. - Prescriptions for ZOFRAN ODT 4 mg - dissolve 1 tablet by ORAL route 4 times per day As needed do not chew, do not swallow whole; 10 tablet. - Medication Reconciliation form. - Follow up: [facility] - Adults; When: Call to arrange an appointment; Reason: Wound/Symptom Recheck, Recheck today's complaints, Worsening of conditions, Continuance of care. - Problem is new. - Symptoms are unchanged. Historical: - Allergies: no known allergies; - Home Meds: 1. none - PMHx: Anxiety; Asthma; Depression; - PSHx: Exploratory lap; - Social history: Smoking status: Patient uses tobacco products, light tobacco smoker. No barriers to communication noted, The patient speaks fluent Kazakh, Speaks appropriately for age. - Family history: Not pertinent. - : The pt / caregiver states he / she is not on anticoagulants. Home medication list is obtained from the patient. - Exposure Risk Screening:: None identified. 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 3 in. (160.02 cm) (R); Pain 7/10; 14:27 Body Mass Index 24.80 (63.50 kg, 160.02 cm) lr2 MDM: 14:42 Ondansetron ODT Oral Disintegrating Tablet 4 mg PO once ordered. cc10 14:52 [facility] Payment Agreement was scanned into [employer] and attached to record. jp5 14:52 Financial registration complete. jp5 04/20 10:16 T-Sheet-- Draft Copy was scanned into [employer] and attached to record. gb Signatures: Eve Munoz, Reg Reg gb Stu Butler, RN RN mlb1 Bull Burt PAHarisC PAHarisC cc10 Rhett Barrett jp5 The chart was reviewed and I authenticate all verbal orders and agree with the evaluation and treatment provided.Attachments: 04/19 14:52 [facility] Payment Agreement jp5 04/20 10:16 T-Sheet-- Draft Copy gb Chart Complete MTDD
--- NOTE | 2016-04-21 15:52 | EDDOCDS ---
Nurse's Notes [facility] Name: Mally Gipson Age: 25 yrs Sex: Female : 1990 Arrival Date: 04/19/2016 Time: 14:26 Bed Triage 3 Private MD: [facility] - Ad[facility] Diagnosis: Nausea and vomiting Presentation: 04/19 14:29 Presenting complaint: Patient states: N/V began at 0600 this am. Adult Sepsis mlb1 Screening: The patient does not have new or worsening altered mentation. Patient's respiratory rate is less than 22. Systolic blood pressure is greater than 100. Patient has a qSOFA score of 0- Negative Sepsis Screen. Suicide/Homicide risk assessment- the patient denies having any suicidal and/or homicidal ideations and does not present with any other emotional, behavioral or mental health complaints. Status: Patient is not a community service representative or dependent. Transition of care: patient was not received from another setting of care. 14:29 Acuity: OLAYINKA Level 4 mlb1 14:29 Method Of Arrival: Walkin/Carried/Asstd mlb1 Triage Assessment: 14:30 General: Appears in no apparent distress, Behavior is appropriate for age, cooperative. mlb1 Pain: Location: abdomen Pain currently is 5 out of 10 on a pain scale. Quality of pain is described as crampy. HIV screening NA for this visit Offered previously. GI: Reports nausea, vomiting. 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 none - PMHx: Anxiety; Asthma; Depression; - PSHx: Exploratory lap; - Social history: Smoking status: Patient uses tobacco products, light tobacco smoker. No barriers to communication noted, The patient speaks fluent Armenian, Speaks appropriately for age. - Family history: Not pertinent. - : The pt / caregiver states he / she is not on anticoagulants. Home medication list is obtained from the patient. - Exposure Risk Screening:: None identified. Screenin:50 Screening information is obtained from the patient. Fall risk: No risks identified. mlb1 Assistance ADL's: requires no assistance with activities of daily living. Abuse/DV Screen: The patient / caregiver reports he/she is: not in a situation that causes fear, pain or injury. Nutritional screening: No deficits noted. Advance Directives: Currently, there is no health care proxy. home support is adequate. Assessment: 14:49 General: Appears in no apparent distress, Behavior is appropriate for age, cooperative. mlb1 Pain: Location: abdomen Pain currently is 5 out of 10 on a pain scale. GI: Abdomen is non- distended Bowel sounds present X 4 quads. Abd is soft and non tender X 4 quads. GI: Reports nausea, vomiting. Derm: No deficits noted. Vital Signs: 14:27 BP 126 / 84; Pulse 126; Resp 18; Temp 98.0(O); Pulse Ox 100% ; Weight 63.5 kg (R); lr2 Height 5 ft. 3 in. (160.02 cm) (R); Pain 7/10; 14:27 Body Mass Index 24.80 (63.50 kg, 160.02 cm) lr2 Vitals: 14:27 Log In Time: April 19, 2016 at 14:26. lr2 ED Course: 14:27 Patient visited by Ritu Mcfarland. lr2 14:27 Patient moved to Waiting lr2 14:28 [facility] is Private Physician. lr2 14:29 Patient visited by Stu Butler, DAMI. mlb1 14:29 Patient moved to Pre RCE lr2 14:29 Patient moved to Triage 3 ms18 14:30 Triage Initiated mlb1 14:31 Bull Burt [facility] cc10 14:31 Jackson Zavala MD is Attending Physician. cc10 14:31 Patient visited by Stu Butler, DAMI. mlb1 14:36 Patient visited by Bull Burt PA-C. cc10 14:36 Patient visited by Bull Burt PA-C. cc10 14:43 [facility] is Referral Physician. cc10 14:50 No IV's were initiated during this patient's visit. No procedures done that require mlb1 assistance. 14:51 The patient / caregiver is instructed regarding the plan of care and ED course. mlb1 14:52 [facility] Payment Agreement was scanned into [employer] and attached to record. jp5 04/20 10:16 T-Sheet-- Draft Copy was scanned into [employer] and attached to record. gb Order Results: There are currently no results for this order. Outcome: 04/19 14:43 Discharge ordered by Provider. cc10 14:50 Discharge Assessment: Patient awake, alert and oriented x 3. No cognitive and/or mlb1 functional deficits noted. Patient verbalized understanding of disposition instructions. patient administered narcotics - no. The following High Risk Discharge criteria are identified: None. Discharged to home ambulatory. Condition: good. Discharge instructions given to patient, Instructed on discharge instructions, follow up and referral plans. medication usage, Demonstrated understanding of instructions, medications, Pt was receptive of discharge instructions/ teaching. No special radiology studies were completed. Property sent home with patient. 14:51 Patient left the ED. mlb1 Signatures: Eve Munoz, Reg Reg gb Stu Butler RN RN mlb1 Bull Burt, PA-C PA-C cc10 Sherine Berger,RN RN ms18 Rhett Barrett jp5 Ritu Mcfarland lr[address] [facility]
== END 2016-04-19 14:51 | disposition home or self-care (01) ==
LOC: M ED 14:26
DX: R11.2 Nausea with vomiting, unspecified (principal); J45.909 Unspecified asthma, uncomplicated; F41.9 Anxiety disorder, unspecified; F32.9 Major depressive disorder, single episode, unspecified; F17.210 Nicotine dependence, cigarettes, uncomplicated

== ENCOUNTER → 2016-06-30 | Outpatient (CLI) | payer OTHER ==
--- NOTE | 2016-07-01 03:13 | REP ---
Clinical: Trauma. Injury. Technique: AP, lateral, bilateral oblique views. Findings: No acute fracture or dislocation. Skeletal structures and joint spaces are intact and normal. Ankle mortise appears stable. No subcutaneous emphysema or radiodense foreign body. Impression: Normal right ankle radiograph series. No acute fracture dislocation appreciated. Signed by Bear Valle MD 07/01/2016 03:05 A
== END ==
LOC: M SMT 15:43
PROVIDERS: ATTEND Family Medicine Addiction Medicine
DX: S99.811A Other specified injuries of right ankle, initial encounter (principal)

== ENCOUNTER → 2016-06-30 | Outpatient (CLI) | payer OTHER ==
[2016-06-30 18:51] LABS: MEAN CORPUSCULAR HEMOGLOBIN 32.8 pg (27.0-33.0); MEAN CORPUSCULAR HGB CONC 34.2 g/dl (32.0-36.5); MEAN CORPUSCULAR VOLUME 95.9 fl (80.0-96.0); RED CELL DISTRIBUTION WIDTH 11.9 % (11.5-14.5); WHITE BLOOD COUNT 11.7 K/mm3 (4.0-10.0)
[2016-06-30 20:29] LABS: ALBUMIN 3.8 GM/DL (3.2-5.2); ALBUMIN/GLOBULIN RATIO 1.41 (1.00-1.93); ALKALINE PHOSPHATASE 86 U/L (45-117); ALT/SGPT 13 U/L (12-78); ANION GAP 7 MEQ/L (8-16); AST/SGOT 7 U/L (15-37); BILIRUBIN,TOTAL 0.3 MG/DL (0.2-1.0); BLOOD UREA NITROGEN 11 MG/DL (7-18); CALCIUM LEVEL 8.5 MG/DL (8.5-10.1); CARBON DIOXIDE LEVEL 26 MEQ/L (21-32); CHLORIDE LEVEL 108 MEQ/L (98-107); CREATININE FOR GFR 0.73 MG/DL (0.55-1.02); GLOMERULAR FILTRATION RATE > 60.0 (>60); GLUCOSE, FASTING 92 MG/DL (70-105); POTASSIUM SERUM 4.3 MEQ/L (3.5-5.1); SODIUM LEVEL 141 MEQ/L (136-145); TOTAL PROTEIN 6.5 GM/DL (6.4-8.2)
== END ==
LOC: M SMT 15:41
PROVIDERS: ATTEND Nurse Practitioner Family
DX: Z51.81 Encounter for therapeutic drug level monitoring (principal); Z79.899 Other long term (current) drug therapy; F90.9 Attention-deficit hyperactivity disorder, unspecified type; F43.8 Other reactions to severe stress

== ENCOUNTER 2016-08-28 19:39 | Emergency (ER) | payer OTHER ==
[~2016-08-28] VITALS: Ht 160 cm; Wt 64.3 kg
[~2016-08-28 19:39] MED LIST changes: +OXYC1TAB23 PO; +PERC5TAB12 PO; -PERC5TAB6 PO
[2016-08-28] MEDS ORDERED: METOCLOPRAMIDE INJ 10MG/2ML VIAL (J2765) IV ONE (20:30)
[2016-08-28] MEDS ORDERED: NS 1,000 ML IV ONE (20:30)
[2016-08-28 20:49] LABS: BASO # 0.1 K/mm3 (0.0-0.2); BASO % 0.6 % (0.0-1.0); EOS # 0.2 K/mm3 (0.0-0.50); EOS % 1.8 % (0.0-3.0); LARGE UNSTAINED CELL # 0.2 K/mm3 (0.0-0.4); LARGE UNSTAINED CELL % 1.8 % (0.0-4.0); LYMPH # 2.6 K/mm3 (1.5-6.5); LYMPH % 21.8 % (24.0-44.0); MEAN CORPUSCULAR HEMOGLOBIN 32.4 pg (27.0-33.0); MEAN CORPUSCULAR HGB CONC 34.3 g/dl (32.0-36.5); MEAN CORPUSCULAR VOLUME 94.5 fl (80.0-96.0); MONO # 0.6 K/mm3 (0.0-0.8); MONO % 5.6 % (0.0-5.0); NEUTROPHILS # 7.6 K/mm3 (1.8-7.7); NEUTROPHILS % 68.5 % (36.0-66.0); PLATELET COUNT, AUTOMATED 263 k/mm3 (150-450); RED CELL DISTRIBUTION WIDTH 11.9 % (11.5-14.5); WHITE BLOOD COUNT 11.1 K/mm3 (4.0-10.0)
[2016-08-28 21:12] LABS: ALBUMIN 3.9 GM/DL (3.2-5.2); ALKALINE PHOSPHATASE 98 U/L (45-117); ALT/SGPT 15 U/L (12-78); AMYLASE 51 U/L (25-115); ANION GAP 8 MEQ/L (8-16); AST/SGOT 10 U/L (15-37); BILIRUBIN,DIRECT < 0.1 MG/DL (0.0-0.2); BILIRUBIN,TOTAL 0.3 MG/DL (0.2-1.0); BLOOD UREA NITROGEN 8 MG/DL (7-18); CALCIUM LEVEL 9.2 MG/DL (8.5-10.1); CARBON DIOXIDE LEVEL 24 MEQ/L (21-32); CHLORIDE LEVEL 109 MEQ/L (98-107); CREATININE FOR GFR 0.81 MG/DL (0.55-1.02); GLOMERULAR FILTRATION RATE > 60.0 (>60); GLUCOSE, FASTING 101 MG/DL (70-105); POTASSIUM SERUM 4.1 MEQ/L (3.5-5.1); SODIUM LEVEL 141 MEQ/L (136-145); TOTAL PROTEIN 6.9 GM/DL (6.4-8.2)
[2016-08-28 21:33] VITALS: BP 114/67
[2016-08-29] MEDS ORDERED: ZOFR4TAB3 PO (20:23)
[2016-08-29] MEDS ORDERED: IMOD2CAP PO (20:23)
== END 2016-08-28 21:37 | disposition home or self-care (01) ==
LOC: M ED 19:39
DX: R10.9 Unspecified abdominal pain (principal); R19.7 Diarrhea, unspecified; F17.200 Nicotine dependence, unspecified, uncomplicated

== ENCOUNTER 2016-08-29 15:01 | Emergency (ER) | payer OTHER ==
[~2016-08-29] VITALS: Ht 160 cm; Wt 66.0 kg
[2016-08-29] MEDS ORDERED: ONDANSETRON 4MG/2ML VIAL (J2405) IV ONE (17:15)
[2016-08-29] MEDS ORDERED: KETOROLAC 30 MG/ML VIAL (J1885) IV ONE (17:15)
[2016-08-29] MEDS ORDERED: NS 500 ML IV ONE (17:15)
[2016-08-29] MEDS ORDERED: GASTROGRAFIN SOLUTION 30ML (Q9963) As Ordered ONE (17:30)
[2016-08-29 17:32] LABS: CONTROL LINE UCG INT CTR LINE PRESENT
[2016-08-29 17:33] LABS: BASO # 0.1 K/mm3 (0.0-0.2); BASO % 0.7 % (0.0-1.0); EOS # 0.1 K/mm3 (0.0-0.50); EOS % 1.6 % (0.0-3.0); LARGE UNSTAINED CELL # 0.2 K/mm3 (0.0-0.4); LARGE UNSTAINED CELL % 2.1 % (0.0-4.0); LYMPH # 2.7 K/mm3 (1.5-6.5); LYMPH % 27.9 % (24.0-44.0); MEAN CORPUSCULAR HGB CONC 33.7 g/dl (32.0-36.5); MEAN CORPUSCULAR VOLUME 94.9 fl (80.0-96.0); MONO # 0.6 K/mm3 (0.0-0.8); MONO % 6.6 % (0.0-5.0); NEUTROPHILS # 5.5 K/mm3 (1.8-7.7); NEUTROPHILS % 61.1 % (36.0-66.0); PLATELET COUNT, AUTOMATED 285 k/mm3 (150-450); RED CELL DISTRIBUTION WIDTH 12.1 % (11.5-14.5)
[2016-08-29] MEDS ORDERED: GASTROGRAFIN SOLUTION 30ML (Q9963) PO ONE ×2 (17:40→18:10)
[2016-08-29 17:54] LABS: ALBUMIN 3.9 GM/DL (3.2-5.2); ALBUMIN/GLOBULIN RATIO 1.26 (1.00-1.93); ALKALINE PHOSPHATASE 91 U/L (45-117); ALT/SGPT 15 U/L (12-78); ANION GAP 4 MEQ/L (8-16); AST/SGOT 10 U/L (15-37); BILIRUBIN,TOTAL 0.2 MG/DL (0.2-1.0); BLOOD UREA NITROGEN 9 MG/DL (7-18); CALCIUM LEVEL 8.7 MG/DL (8.5-10.1); CARBON DIOXIDE LEVEL 25 MEQ/L (21-32); CHLORIDE LEVEL 109 MEQ/L (98-107); CREATININE FOR GFR 0.88 MG/DL (0.55-1.02); GLOMERULAR FILTRATION RATE > 60.0 (>60); GLUCOSE, FASTING 96 MG/DL (70-105); POTASSIUM SERUM 3.7 MEQ/L (3.5-5.1); SODIUM LEVEL 138 MEQ/L (136-145)
[2016-08-29] MEDS ORDERED: ISOVUE-370 76% 100ML VIAL (Q9967) As Ordered ONE (19:22)
--- NOTE | 2016-08-29 19:46 | REP ---
Clinical: Lower abdominal pain. Technique: Axial contrast enhanced images from the lung bases to the pubic symphysis using oral and 100 ml Isovue 370 intravenous contrast material with coronal and sagittal re-formations. Comparison: 04/19/2013. Findings: Liver, spleen, pancreas, gallbladder, bilateral adrenal glands and kidneys are normal. The enteric system is without obstruction and a very mild colitis cannot definitively be excluded. Normal terminal ileum and appendix identified in the right lower quadrant. Few scattered sigmoid diverticula noted without acute diverticulitis. Pelvis demonstrates normal bladder and age-appropriate uterus/adnexa. Small amount of free fluid in the right preston pelvis with rim enhancing ovarian cyst may reflect subtle ruptured ovarian follicle. No ascites. No free air. No adenopathy. Abdominal aorta and vasculature normal. Surrounding musculoskeletal structures without focal osseous abnormality. Lung bases are clear. Impression: 1. A very mild colitis cannot be excluded as well as the possibility of small ruptured right ovarian follicle with trace adjacent free fluid. Clinical and physical correlation is recommended. 2. No further acute abdominopelvic pathology appreciated. Signed by Bear Valle MD 08/29/2016 07:37 P
[2016-08-29] MEDS ORDERED: IMOD2CAP PO (20:23)
[2016-08-29] MEDS ORDERED: ZOFR4TAB3 PO (20:23)
[2016-08-29 20:31] VITALS: BP 141/85
== END 2016-08-29 20:35 | disposition home or self-care (01) ==
LOC: M ED 15:01
DX: R10.31 Right lower quadrant pain (principal); R10.32 Left lower quadrant pain; R11.2 Nausea with vomiting, unspecified; K52.9 Noninfective gastroenteritis and colitis, unspecified; F32.9 Major depressive disorder, single episode, unspecified; F17.210 Nicotine dependence, cigarettes, uncomplicated

== ENCOUNTER → 2016-09-09 | Outpatient (REF) | payer OTHER ==
[~2016-09-09] MED LIST changes: +IMOD2CAP PO; +ZOFR4TAB3 PO
== END ==
LOC: M LAB REF 17:08
PROVIDERS: ATTEND Specialist
DX: R87.612 Low grade squamous intraepithelial lesion on cytologic smear of cervix (LGSIL) (principal)

== ENCOUNTER → 2016-11-26 | Outpatient (CLI) | payer OTHER ==
[2016-11-26 14:16] LABS: BASO # 0.1 10^3/uL (0.0-0.2); BASO % 0.5 % (0.0-1.0); EOS # 0.2 10^3/uL (0.0-0.50); EOS % 1.6 % (0.0-3.0); IMMATURE GRANULOCYTE % 0.5 % (0-0); LYMPH % 18.1 % (24.0-44.0); MEAN CORPUSCULAR HEMOGLOBIN 31.9 pg (27.0-33.0); MEAN CORPUSCULAR HGB CONC 34.8 g/dl (32.0-36.5); MEAN CORPUSCULAR VOLUME 91.7 fl (80.0-96.0); MONO # 0.8 10^3/uL (0.0-0.8); NEUTROPHILS % 72.3 % (36.0-66.0); RED CELL DISTRIBUTION WIDTH 12.2 % (11.5-14.5)
[2016-11-26 14:46] LABS: FOLATE 4.7 NG/ML; VITAMIN B12 LEVEL 488 PG/ML
[2016-11-26 14:54] LABS: ALBUMIN/GLOBULIN RATIO 1.38 (1.00-1.93); ALKALINE PHOSPHATASE 97 U/L (45-117); ALT/SGPT 16 U/L (12-78); ANION GAP 9 MEQ/L (8-16); AST/SGOT 11 U/L (15-37); BILIRUBIN,TOTAL 0.3 MG/DL (0.2-1.0); BLOOD UREA NITROGEN 7 MG/DL (7-18); CALCIUM LEVEL 8.7 MG/DL (8.5-10.1); CARBON DIOXIDE LEVEL 26 MEQ/L (21-32); CHLORIDE LEVEL 108 MEQ/L (98-107); CHOLESTEROL LEVEL 166 MG/DL (<200); CREATININE FOR GFR 0.85 MG/DL (0.55-1.02); FREE T4 0.91 NG/DL (0.76-1.46); GLOMERULAR FILTRATION RATE > 60.0 (>60); GLUCOSE, FASTING 70 MG/DL (70-105); POTASSIUM SERUM 3.9 MEQ/L (3.5-5.1); SODIUM LEVEL 143 MEQ/L (136-145); TOTAL PROTEIN 6.9 GM/DL (6.4-8.2); TRIGLYCERIDES LEVEL 164 MG/DL (<150)
[2016-11-28 00:08] LABS: Lyme Disease IgG/IgM Antibodie <0.91 ISR (0.00-0.90); Lyme Disease IgM Ab Quantitati <0.80 index (0.00-0.79)
== END ==
LOC: M LAB 12:56
PROVIDERS: ATTEND Physician Assistant
DX: R41.3 Other amnesia (principal)

== ENCOUNTER 2017-02-02 12:35 | Emergency (ER) | payer OTHER ==
[~2017-02-02] VITALS: Ht 160 cm; Wt 63.6 kg
[2017-02-02 12:35] VITALS: BP 129/87
[2017-02-02] MEDS ORDERED: HYDR-3363 (12:42)
[2017-02-02] MEDS ORDERED: ATOM60CA2 (12:42)
[2017-02-02] MEDS ORDERED: PROCAER4 PR (13:36)
[2017-02-02] MEDS ORDERED: COLA100C5 PO (13:36)
== END 2017-02-02 13:51 | disposition home or self-care (01) ==
LOC: M ED 12:35
DX: K64.4 Residual hemorrhoidal skin tags (principal); K64.8 Other hemorrhoids; K59.00 Constipation, unspecified; E11.9 Type 2 diabetes mellitus without complications; I10 Essential (primary) hypertension; J45.909 Unspecified asthma, uncomplicated; F32.9 Major depressive disorder, single episode, unspecified; Z85.41 Personal history of malignant neoplasm of cervix uteri; F17.200 Nicotine dependence, unspecified, uncomplicated; Z79.899 Other long term (current) drug therapy

== ENCOUNTER → 2017-03-02 | Outpatient (CLI) | payer OTHER | LOC: M RAD 16:55 | DX: M25.561 Pain in right knee (principal) | CPT/HCPCS: 73564 ==

== ENCOUNTER → 2017-03-18 | Outpatient (REF) | payer OTHER ==
[2017-03-18 13:17] LABS: APPEARANCE, URINE CLOUDY (CLEAR); BACTERIA, URINE AUTO NEGATIVE (NEGATIVE); BILIRUBIN, URINE AUTO 1+ (NEGATIVE); BLOOD, URINE BLOOD NEGATIVE (NEGATIVE); COLOR, URINE AMBER (YELLOW); GLUCOSE, URINE (UA) AUTO NEGATIVE (NEGATIVE); KETONE, URINE AUTO NEGATIVE (NEGATIVE); LEUKOCYTE ESTERASE, URINE AUTO NEGATIVE (NEGATIVE); MUCUS, URINE LARGE (NEGATIVE); NITRITE, URINE AUTO NEGATIVE (NEGATIVE); PROTEIN, URINE AUTO 1+ mg/dL (NEGATIVE); RBC, URINE AUTO 2 /HPF (0-3); SPECIFIC GRAVITY URINE AUTO 1.031 (1.002-1.035); SQUAMOUS EPITHELIAL CELL UR AU 25 /HPF (0-6); WBC, URINE AUTO 4 /HPF (0-3)
== END ==
LOC: M LAB REF 12:33
DX: R82.90 Unspecified abnormal findings in urine (principal)
CPT/HCPCS: 81001

== ENCOUNTER → 2017-03-19 | Outpatient (CLI) | payer OTHER ==
[2017-03-19 19:16] LABS: BASO # 0.1 10^3/uL (0.0-0.2); BASO % 0.9 % (0.0-1.0); EOS # 0.1 10^3/uL (0.0-0.50); EOS % 1.4 % (0.0-3.0); HEMATOCRIT 41.1 % (36.0-47.0); HEMOGLOBIN 14.2 g/dl (12.0-16.0); IMMATURE GRANULOCYTE % 0.4 % (0-0); LYMPH % 31.1 % (24.0-44.0); MEAN CORPUSCULAR HEMOGLOBIN 31.5 pg (27.0-33.0); MEAN CORPUSCULAR HGB CONC 34.5 g/dl (32.0-36.5); MEAN CORPUSCULAR VOLUME 91.1 fl (80.0-96.0); MONO # 0.7 10^3/uL (0.0-0.8); NEUTROPHILS # 5.7 10^3/uL (1.8-7.7); NEUTROPHILS % 59.2 % (36.0-66.0); PLATELET COUNT, AUTOMATED 278 10^3/uL (150-450); RED BLOOD COUNT 4.51 10^6/uL (4.00-5.40); RED CELL DISTRIBUTION WIDTH 11.9 % (11.5-14.5); WHITE BLOOD COUNT 9.7 10^3/uL (4.0-10.0)
[2017-03-19 19:26] LABS: ALBUMIN 4.1 GM/DL (3.2-5.2); ALBUMIN/GLOBULIN RATIO 1.46 (1.00-1.93); ALKALINE PHOSPHATASE 100 U/L (45-117); ALT/SGPT 12 U/L (12-78); ANION GAP 7 MEQ/L (8-16); AST/SGOT 12 U/L (7-37); BILIRUBIN,TOTAL 0.4 MG/DL (0.2-1.0); BLOOD UREA NITROGEN 7 MG/DL (7-18); CARBON DIOXIDE LEVEL 28 MEQ/L (21-32); CHLORIDE LEVEL 107 MEQ/L (98-107); CREATININE FOR GFR 0.76 MG/DL (0.55-1.02); GLOMERULAR FILTRATION RATE > 60.0 (>60); GLUCOSE, FASTING 74 MG/DL (70-100); POTASSIUM SERUM 3.6 MEQ/L (3.5-5.1); SODIUM LEVEL 142 MEQ/L (136-145); TOTAL PROTEIN 6.9 GM/DL (6.4-8.2)
[2017-03-19 19:27] LABS: APPEARANCE, URINE CLOUDY (CLEAR); BACTERIA, URINE AUTO 1+ (NEGATIVE); BILIRUBIN, URINE AUTO NEGATIVE (NEGATIVE); BLOOD, URINE BLOOD NEGATIVE (NEGATIVE); COLOR, URINE YELLOW (YELLOW); GLUCOSE, URINE (UA) AUTO NEGATIVE (NEGATIVE); KETONE, URINE AUTO NEGATIVE (NEGATIVE); LEUKOCYTE ESTERASE, URINE AUTO 1+ (NEGATIVE); MUCUS, URINE SMALL (NEGATIVE); NITRITE, URINE AUTO NEGATIVE (NEGATIVE); PROTEIN, URINE AUTO NEGATIVE (NEGATIVE); RBC, URINE AUTO 2 /HPF (0-3); SPECIFIC GRAVITY URINE AUTO 1.023 (1.002-1.035); SQUAMOUS EPITHELIAL CELL UR AU 13 /HPF (0-6); WBC, URINE AUTO 7 /HPF (0-3)
== END ==
LOC: M LAB 15:39
DX: R82.2 Biliuria (principal)
CPT/HCPCS: 80053

== ENCOUNTER → 2017-03-29 | Outpatient (REF) | payer OTHER | LOC: M LAB REF 19:17 | DX: Z12.4 Encounter for screening for malignant neoplasm of cervix (principal) ==

== ENCOUNTER 2017-04-23 13:27 | Emergency (ER) | payer OTHER | END 2017-04-23 14:43 | disposition home or self-care (01) | LOC: M ED 13:27 | DX: G56.01 Carpal tunnel syndrome, right upper limb (principal); R73.03 Prediabetes; F17.210 Nicotine dependence, cigarettes, uncomplicated; Z98.890 Other specified postprocedural states; Z87.09 Personal history of other diseases of the respiratory system; Z85.41 Personal history of malignant neoplasm of cervix uteri; Z86.59 Personal history of other mental and behavioral disorders | CPT/HCPCS: 99284 ==

== ENCOUNTER → 2017-04-27 | Outpatient (CLI) | payer OTHER | LOC: M RAD 16:47 | DX: N60.01 Solitary cyst of right breast (principal) | CPT/HCPCS: 76642 ==

== ENCOUNTER → 2017-06-09 | Outpatient (CLI) | payer OTHER | LOC: M RAD 11:58 | DX: M54.16 Radiculopathy, lumbar region (principal) | CPT/HCPCS: 72110 ==

== ENCOUNTER → 2017-06-22 | Outpatient (CLI) | payer OTHER ==
[2017-06-22 14:13] LABS: ALBUMIN/GLOBULIN RATIO 1.33 (1.00-1.93); ALKALINE PHOSPHATASE 86 U/L (45-117); ALT/SGPT 11 U/L (12-78); ANION GAP 6 MEQ/L (8-16); AST/SGOT 11 U/L (7-37); BILIRUBIN,TOTAL 0.5 MG/DL (0.2-1.0); BLOOD UREA NITROGEN 8 MG/DL (7-18); CARBON DIOXIDE LEVEL 26 MEQ/L (21-32); CHLORIDE LEVEL 110 MEQ/L (98-107); CREATININE FOR GFR 0.88 MG/DL (0.55-1.30); GLOMERULAR FILTRATION RATE > 60.0 (>60); GLUCOSE, FASTING 86 MG/DL (70-100); SODIUM LEVEL 142 MEQ/L (136-145)
== END ==
LOC: M LAB 13:15
DX: F17.210 Nicotine dependence, cigarettes, uncomplicated (principal)
CPT/HCPCS: 80053

== ENCOUNTER → 2017-11-11 | Outpatient (CLI) | payer OTHER | LOC: M RAD 17:10 | DX: N60.01 Solitary cyst of right breast (principal) | CPT/HCPCS: 76642 ==

== ENCOUNTER → 2018-06-22 | Outpatient (REF) | payer OTHER ==
[~2018-06-22] MED LIST changes: -ACET50TA PO; +ATOM60CA2; +COLA100C5 PO; +CYCL5TAB; +HYDR-3363; +IBUP-1022 PO; +IBUP600T42 PO; -IBUP60TA PO; +MAPA500T2 PO; +PROC1AER16 PR; +ZOFR4TAB14 PO; -ZOFR4TAB3 PO; +ibuprofen
== END ==
LOC: M LAB REF 12:51
PROVIDERS: ATTEND Specialist
DX: Z12.4 Encounter for screening for malignant neoplasm of cervix (principal)

== ENCOUNTER 2018-07-29 07:42 | Day surgery (SDC) | payer OTHER ==
[~2018-07-29] VITALS: Ht 160 cm; Wt 71.2 kg
[~2018-07-29 07:42] MED LIST changes: +LR 1,000 ML IV ONE; +MELA10TA PO
[2018-07-29 08:20] LABS: HEMOGLOBIN 14.8 g/dl (12.0-15.5); MEAN CORPUSCULAR HEMOGLOBIN 31.6 pg (27.0-33.0); MEAN CORPUSCULAR HGB CONC 34.4 g/dl (32.0-36.5); MEAN CORPUSCULAR VOLUME 91.9 fl (80.0-96.0); PLATELET COUNT, AUTOMATED 289 10^3/uL (150-450); RED BLOOD COUNT 4.68 10^6/uL (4.00-5.40); WHITE BLOOD COUNT 8.3 10^3/uL (4.0-10.0)
[2018-07-29] MEDS ORDERED: PROPOFOL 200 MG/20 ML VIAL As Ordered ONE (08:24)
[2018-07-29] MEDS ORDERED: ROCURONIUM BROMIDE 50 MG/5 ML VIAL As Ordered ONE (08:24)
[2018-07-29] MEDS ORDERED: ONDANSETRON 4MG/2ML VIAL (J2405) As Ordered ONE (08:25)
[2018-07-29] MEDS ORDERED: MIDAZOLAM INJ 2 MG/2 ML VIAL (J2250) As Ordered ONE (08:25)
[2018-07-29] MEDS ORDERED: dexameTHASONE 4 MG/ML 1ML VIAL (J1100) As Ordered ONE (08:25)
[2018-07-29] MEDS ORDERED: LIDOCAINE 2% INJ 100 MG/5 ML SDV (FOR ANES.) As Ordered ONE (08:25)
[2018-07-29] MEDS ORDERED: fentaNYL 100 MCG/2 ML INJECTION (J3010) As Ordered ONE ×3 (08:25→11:42)
[2018-07-29 08:41] LABS: URINE PREG TEST NEGATIVE (NEGATIVE)
[2018-07-29] MEDS ORDERED: OXYC1TAB23 PO (09:34)
[2018-07-29] MEDS ORDERED: IBUP-1022 PO (09:35)
[2018-07-29] MEDS ORDERED: BUPIVACAINE HCL 0.25% 10 ML VIAL As Ordered ONE (09:35)
[2018-07-29] MEDS ORDERED: METHYLENE BLUE 0.5% (5MG/ML) 10 ML AMP (PROVAYBLUE)(Q9968 PER 1MG) As Ordered ONE (09:36)
[2018-07-29] MEDS ORDERED: PHENYLephrine HCL 500 MCG/5 ML (100MCG/ML) SYRINGE (J2370) As Ordered ONE (10:23)
[2018-07-29] MEDS ORDERED: ACETAMINOPHEN 1000MG 100ML IV BTL (OFIRMEV) (J0131 PER 10MG) As Ordered ONE (10:23)
[2018-07-29] MEDS ORDERED: SUGAMMADEX SODIUM 500 MG/5 ML VIAL (BRIDION) As Ordered ONE (10:26)
[2018-07-29] MEDS ORDERED: KETAMINE HCL 200 MG/20 ML VIAL As Ordered ONE (10:27)
[2018-07-29] MEDS: fentaNYL 100 MCG/2 ML INJECTION (J3010) IV PRN ×4 (11:29→11:44)
[2018-07-29] MEDS ORDERED: ONDANSETRON 4MG/2ML VIAL (J2405) IV PRN ×2 (12:15)
[2018-07-29] MEDS ORDERED: KETOROLAC 30 MG/ML VIAL (J1885) IV PRN (12:15)
[2018-07-29] MEDS ORDERED: oxyCODONE 5MG TAB PO PRN (12:15)
[2018-07-29] MEDS ORDERED: LR 1,000 ML IV SCH ×2 (12:15)
[2018-07-29] MEDS ORDERED: MORPHINE 4 MG/ML 1ML VIAL/SYRINGE (J2270) IV PRN (12:15)
[2018-07-29] MEDS ORDERED: PERCOCET 5MG/325MG TAB PO PRN (12:15)
[2018-07-29 12:50] VITALS: BP 111/55
[2018-07-29 13:20] VITALS: BP 116/58
[2018-07-29 13:50] VITALS: BP 116/57
[2018-07-29 14:50] VITALS: BP 134/60
[2018-07-29 15:50] VITALS: BP 120/56
[2018-07-29 16:50] VITALS: BP 131/62
[2018-07-29] MEDS ORDERED: DOCUSATE SODIUM 100 MG CAP PO SCH (21:00)
--- NOTE | 2018-07-30 09:56 | RO ---
DATE OF PROCEDURE: 07/29/2018 PREPROCEDURE DIAGNOSIS: Menorrhagia. POSTPROCEDURE DIAGNOSIS: Menorrhagia. OPERATIVE PROCEDURES: Robotic assisted laparoscopic hysterectomy, right salpingectomy, cystoscopy. SURGEON: Ki Sullivan MD INTERNATIONAL NURSE: Zahra Yanez NP ANESTHESIA: General endotracheal. ESTIMATED BLOOD LOSS: 75 mL URINE OUTPUT: 100 mL FINDINGS: Normal uterus, hydrosalpinx noted of the right fallopian tube and evidence of prior tubal sterilization. Normal upper abdomen. OPERATIVE SUMMARY: The patient was to the operating room where general endotracheal anesthesia was induced. She was prepped and draped in a sterile fashion in the dorsal lithotomy position. A Banda catheter was placed and VCare uterine manipulator was placed. A periumbilical incision was made with a scalpel. A Veress needle was placed through this incision while tenting up on the skin of the abdomen. Intraabdominal location of the Veress needle was assessed with the use of a saline filled syringe. A pneumoperitoneum was created. Veress needle was removed. An 8 mm trocar using Meludia was inserted through this incision. Three 8 mm suprapubic ports were placed under direct visualization. The patient was placed in Trendelenburg position and the Da Alana surgical robot was docked to the ports. Using the fenestrated bipolar and the Vessel Sealer the broad ligament and broad ligament attachments to the right fallopian tube were coagulated and incised. Uteroovarian ligaments bilaterally were coagulated and incised. The round ligaments were coagulated and incised. The anterior and posterior leaves of the broad ligament were . Bladder flap was created. The uterine vessels were coagulated and incised with the aid of monopolar Endo Beronica. Colpotomy was created at the level of the VCare cup in the upper vagina and extended circumferentially around the vagina. The specimen containing the uterus, cervix along with the right fallopian tube was removed through the vagina. The vaginal cuff was closed with #1 V-Loc suture in a running fashion. The pelvis was irrigated and good hemostasis was noted. All instruments were removed. Cystoscopy was performed using 70 degrees cystoscope. Bilateral ureter jets were identified. There was no evidence of injury to the bladder. The cystoscope was removed. Spone, instrument and needle counts were correct. The skin was closed with #4-0 Monocryl subcuticular sutures. Zahra Yanez NP assisted with all aspects of the procedure. She helped position the patient, insert the ports and subsequently manipulated the uterus throughout the procedure. She removed the specimen and help to close.
== END 2018-07-29 17:15 | disposition home or self-care (01) ==
LOC: M SDC 07:42 → M PED 12:50 → M SDC 17:15
PROVIDERS: ATTEND Specialist
DX: N92.0 Excessive and frequent menstruation with regular cycle (principal); N72 Inflammatory disease of cervix uteri; J45.909 Unspecified asthma, uncomplicated; Z79.899 Other long term (current) drug therapy; F41.9 Anxiety disorder, unspecified; F32.9 Major depressive disorder, single episode, unspecified; F17.210 Nicotine dependence, cigarettes, uncomplicated
CPT/HCPCS: 36415; 58571; 84703; 85027; 86850; 88307; J0131; J0690; J1100; J1885; J2250; J2270; J2370; J2405; J3010; Q9968

== ENCOUNTER → 2018-12-09 | Outpatient (CLI) | payer OTHER ==
[~2018-12-09] MED LIST changes: -LR 1,000 ML IV ONE
--- NOTE | 2018-12-09 11:24 | REP ---
Two-view chest: 12/10/2018. Indication: Dyspnea. Asthma. Comparison: 01/08/2016. Findings: The lungs are clear. There is no pleural effusion or pneumothorax. The cardiomediastinal silhouette is normal. Impression: No acute cardiopulmonary process. Electronically Signed by Antnoio Diaz DO 12/09/2018 11:15 A
== END ==
LOC: M RAD 10:46
PROVIDERS: ATTEND Physician Assistant
DX: J45.909 Unspecified asthma, uncomplicated (principal)

== ENCOUNTER → 2019-01-01 | Outpatient (CLI) | payer OTHER ==
--- NOTE | 2019-01-01 15:41 | REP ---
Left rib series four views: There is no rib fracture or other rib abnormality. PA chest: Comparison is 12/09/2018. There is no pneumothorax, hemothorax or pulmonary contusion. No pleural thickening. Lung parada are clear. Cardiac size is normal. The [place], mediastinum, skeletal structures are unremarkable. Impression: Negative PA chest. No interval change. Electronically Signed by Newton Archibald MD 01/01/2019 03:33 P
== END ==
LOC: M WUC 15:17
PROVIDERS: ATTEND Physician Assistant
DX: R07.89 Other chest pain (principal); Z72.0 Tobacco use

== ENCOUNTER → 2019-05-03 | Outpatient (CLI) | payer OTHER ==
--- NOTE | 2019-05-03 19:56 | REP ---
Right foot four views : There is no fracture or dislocation. Mineralization and joint spaces are normal. There are no calcifications or foreign bodies. Impression: Negative right foot . Electronically Signed by Newton Archibald MD 05/03/2019 07:47 P
== END ==
LOC: M RAD 18:54
PROVIDERS: ATTEND Physician Assistant
DX: M79.671 Pain in right foot (principal)

== ENCOUNTER 2019-06-14 08:15 | Outpatient (RCR) | payer OTHER | END 2019-06-22 | LOC: M PT 08:15 | PROVIDERS: ATTEND Physician Assistant | DX: M25.571 Pain in right ankle and joints of right foot (principal) ==

== ENCOUNTER → 2019-07-04 | Outpatient (CLI) | payer OTHER | LOC: M LABSMTC 13:23 | PROVIDERS: ATTEND Family Medicine | DX: Z11.59 Encounter for screening for other viral diseases (principal); Z20.828 Contact with and (suspected) exposure to other viral communicable diseases | CPT/HCPCS: C8903; U0003 ==

== ENCOUNTER → 2019-11-17 | Outpatient (CLI) | payer OTHER ==
--- NOTE | 2019-11-23 18:01 | REP ---
LEFT SHOULDER SERIES HISTORY: Pain. TECHNIQUE: Three views of the left shoulder are performed. FINDINGS: There is no evidence of acute fracture, dislocation, or intrinsic bone disease. The joint spaces are well preserved without significant arthritic change. IMPRESSION: Negative left shoulder series. MTDD
== END ==
LOC: M RAD 12:03
PROVIDERS: ATTEND Physician Assistant
DX: M25.512 Pain in left shoulder (principal)

== ENCOUNTER → 2020-07-24 | Outpatient (CLI) | payer OTHER ==
--- NOTE | 2020-07-24 12:19 | REP ---
INDICATION: SPRAIN OF RIBS, INITIAL ENCOUNTER COMPARISON: None. TECHNIQUE: Frontal view of the chest with four views of the right hemithorax. FINDINGS: Frontal view of the chest demonstrates no acute cardiopulmonary process, contusion, effusion, or pneumothorax. Multiple views of the right hemithorax demonstrates no acute rib fracture/injury or pathology. IMPRESSION: Normal rib series. No right rib fracture or obvious pathology appreciated. <Electronically signed by Bear Valle > 07/24/20 [id number]
== END ==
LOC: M RAD 11:36
PROVIDERS: ATTEND Nurse Practitioner Family
DX: S23.41XA Sprain of ribs, initial encounter (principal); X58.XXXA Exposure to other specified factors, initial encounter; Y92.9 Unspecified place or not applicable

== ENCOUNTER → 2022-02-24 | Outpatient (CLI) | payer OTHER ==
[2022-02-24 14:06] LABS: FOLLICLE STIMULATING HORMONE 12.2 mIU/ML; LUTEINIZING HORMONE 22.8 mIU/ML; THYROID STIMULATING HORMONE 0.803 uIU/ML (0.55-4.78)
[2022-02-24 14:07] LABS: FREE T4 1.01 NG/DL (0.89-1.76)
== END ==
LOC: M PLALAB 11:14
PROVIDERS: ATTEND Specialist
DX: N95.9 Unspecified menopausal and perimenopausal disorder (principal)

== ENCOUNTER → 2023-09-29 | Outpatient (CLI) | payer OTHER ==
[~2023-09-29] MED LIST changes: -MELA10TA PO; +MELATONIN CR10 MG PO
== END ==
LOC: M RAD 11:28
PROVIDERS: ATTEND Nurse Practitioner Family
DX: M54.6 Pain in thoracic spine (principal); M54.50 Low back pain, unspecified

== ENCOUNTER → 2023-10-18 | Outpatient (CLI) | payer OTHER | LOC: M RAD 14:04 | PROVIDERS: ATTEND Nurse Practitioner Family | DX: S99.922A Unspecified injury of left foot, initial encounter (principal); R23.0 Cyanosis; M79.89 Other specified soft tissue disorders; Y93.9 Activity, unspecified; Y92.9 Unspecified place or not applicable ==

== ENCOUNTER → 2023-10-19 | Outpatient (CLI) | payer OTHER | LOC: M RAD 14:50 | PROVIDERS: ATTEND Nurse Practitioner Family | DX: R23.0 Cyanosis (principal); M79.89 Other specified soft tissue disorders; S99.922A Unspecified injury of left foot, initial encounter; X58.XXXA Exposure to other specified factors, initial encounter; Y92.9 Unspecified place or not applicable ==

== ENCOUNTER → 2024-03-29 | Outpatient (REF) ==
[~2024-03-29] MED LIST changes: -CYCL5TAB; +CYCL5TAB4
== END ==
LOC: M PLAIMG 09:00
PROVIDERS: ATTEND Internal Medicine
DX: R52 Pain, unspecified (principal)

== ENCOUNTER → 2024-12-14 | Outpatient (CLI) | payer OTHER ==
[~2024-12-14] MED LIST changes: -IBUP-1022 PO
[2024-12-14 17:28] LABS: BASO # 0.1 10^3/uL (0.0-0.2); BASO % 1.0 % (0.0-1.0); EOS # 0.6 10^3/uL (0.0-0.5); EOS % 4.3 % (0.0-3.0); LYMPH # 7.6 10^3/uL (1.5-5.0); LYMPH % 52.1 % (24.0-44.0); MONO # 1.1 10^3/uL (0.0-0.8); MONO % 7.4 % (2.0-8.0); NEUTROPHILS # 5.1 10^3/uL (1.5-8.5); NEUTROPHILS % 34.9 % (36.0-66.0); PLATELET COUNT, AUTOMATED 292 10^3/uL (150-450)
[2024-12-14 17:49] LABS: ESTIMATED AVERAGE GLUCOSE 94.0 MG/DL (60-110)
[2024-12-14 18:02] LABS: ALT/SGPT 13 U/L (7.0-40); AST/SGOT 13 U/L (<34); CALCIUM LEVEL 9.6 MG/DL (8.5-10.1); CARBON DIOXIDE LEVEL 25 MMOL/L (20-31); CHLORIDE LEVEL 108 MMOL/L (98-107); CREATININE FOR GFR 0.84 MG/DL (0.55-1.30); GLOMERULAR FILTRATION RATE > 90.0 (>60); POTASSIUM SERUM 3.6 MMOL/L (3.5-5.1); SODIUM LEVEL 141 MMOL/L (136-145)
[2024-12-14 18:09] LABS: FREE T4 1.10 NG/DL (0.89-1.76)
== END ==
LOC: M LAB 16:51
PROVIDERS: ATTEND Nurse Practitioner Family
DX: R25.1 Tremor, unspecified (principal)